=== PATIENT | female | born 1995 | race Caucasian/White ===

== ENCOUNTER 2020-04-18 14:24 | Emergency (ER) | payer OTHER ==
[~2020-04-18 14:24] MED LIST: CLINDAMYCIN HC150 MG PO; DICLOFENAC POTA50 MG PO; FLONASE 0.05% N16 GM; IBUPROFEN600 MG PO; PREDNISONE 50 M50 MG PO; Viscous lidocaine2% TOP; ZYRTEC10 MG PO
[2020-04-18 15:16] LABS: HEMOGLOBIN 14.3 gm/dl (12.3-15.3); RED BLOOD COUNT 5.07 M/UL (4.00-5.10); WHITE BLOOD COUNT 11.1 K/UL (4.5-11.0)
[2020-04-18 15:38] LABS: BUN/CREATININE RATIO 14 (0-10)
== END 2020-04-18 18:14 | disposition left against medical advice (07) ==
LOC: ER1 14:24
PROVIDERS: Student in an Organized Health Care Education/Training Program
DX: R11.2 Nausea with vomiting, unspecified (principal); R19.7 Diarrhea, unspecified; M54.9 Dorsalgia, unspecified; F17.200 Nicotine dependence, unspecified, uncomplicated; Z20.822 Contact with and (suspected) exposure to COVID-19
CPT/HCPCS: 0240U; 80053; 81001; 82550; 82553; 84703; 85025; 96374; 96375; 99284; J2270; J2405; Q9967

== ENCOUNTER 2020-10-17 16:35 | Emergency (ER) | payer OTHER | END 2020-10-17 17:38 | disposition left against medical advice (07) | LOC: ER1 16:35 | DX: Z53.21 Procedure and treatment not carried out due to patient leaving prior to being seen by health care provider (principal) ==